=== PATIENT | female | born 1985 | race Caucasian/White ===

== ENCOUNTER 2023-09-18 15:22 | Outpatient (CLI) | payer OTHER, SELFPAY ==
--- NOTE | ~2023-09-18 | US_ITS ---
EXAMINATION: US pelvic complete w TV DATE: 09/18/2023 15:50 INDICATION: lower ab pain, dyspareunia TECHNIQUE: Multiple transabdominal and endovaginal sonographic images of the pelvis were obtained. COMPARISON: None. FINDINGS: Uterus: 10.2 x 3.4 x 3.2 cm. Endometrial complex measures 11 mm. Right Ovary: Not visualized. No adnexal mass Left Ovary: 3.2 x 2.6 x 2.9 cm. Vascular flow is present. 2.6 cm simple ovarian cyst. There is small volume free fluid in the pelvis. IMPRESSION: Right ovary not visualized. Otherwise, unremarkable pelvic sonogram findings. Reviewed, dictated and finalized at location K.
== END 2023-09-18 15:23 ==
PROVIDERS: PCP Family Medicine; Visit Provider Physician Assistant
DX: R10.30 Lower abdominal pain, unspecified (principal); N94.10 Unspecified dyspareunia
CPT/HCPCS: 76830; 76856

== ENCOUNTER 2023-10-16 15:34 | Outpatient (CLI) | payer OTHER, SELFPAY ==
--- NOTE | ~2023-10-16 | MM_ITS ---
EXAMINATION: MM screening billy BI w odilia HISTORY: Screening TECHNIQUE: Craniocaudal and mediolateral oblique 3-D tomosynthesis images were obtained and synthetic 2-D images were generated. CAD analysis was submitted and interpreted. COMPARISON: No prior mammogram is available for comparison at this institution. BREAST PARENCHYMAL COMPOSITION: Dense: The breasts are extremely dense, which lowers the sensitivity of mammography. FINDINGS: There is no mammographic evidence for malignancy in the left breast. There is a mass which is partially obscured in the upper outer quadrant of the right breast. IMPRESSION: 1. Partially obscured mass of the right breast in the upper outer quadrant posteriorly. 2. Additional mammographic views and possible breast ultrasound are recommended. BI-RADS Category 0: Incomplete: Needs additional imaging evaluation. Reviewed, dictated and finalized at location B. IMPRESSION: 1. Partially obscured mass of the right breast in the upper outer quadrant post eriorly. 2. Additional mammographic views and possible breast ultrasound are recommended . BI-RADS Category 0: Incomplete: Needs additional imaging evaluation.
== END 2023-10-16 15:35 | disposition home or self-care (01) ==
LOC: MICIMG 15:35
PROVIDERS: PCP Family Medicine; Visit Provider Physician Assistant
DX: Z12.31 Encounter for screening mammogram for malignant neoplasm of breast (principal); N63.11 Unspecified lump in the right breast, upper outer quadrant
CPT/HCPCS: 77063; 77067

== ENCOUNTER 2023-11-06 08:07 | Outpatient (CLI) | payer OTHER, SELFPAY ==
--- NOTE | ~2023-11-06 | MMUS_ITS ---
EXAMINATION: MM diagnostic billy RT w odilia, US breast RT limited HISTORY: Right breast masses TECHNIQUE: Additional 3-D tomosynthesis images of the right breast were performed and synthetic 2-D i mages were generated. CAD analysis was submitted and interpreted. High resolution limited right breas t ultrasound was performed. COMPARISON: 10/16/2023 BREAST PARENCHYMAL COMPOSITION:Dense: The breasts are extremely dense, which lowers the sensitivity o f mammography. FINDINGS: MAMMOGRAPHIC FINDINGS: Spot compression views confirm a persistent 15 mm ovoid mass at the upper, outer right breast. There are additional probable ovoid masses more posteriorly at the upper, outer right breast. ULTRASOUND: At the 10:00 position right breast, 5.5 cm from nipple, there is a 1.4 x 0.6 x 1.2 cm ovoid, hypoecho ic, solid mass, circumscribed, wider than tall, with posterior through transmission. There is a simil ar-appearing smaller mass nearby measuring 0.5 cm in maximum diameter. There is additional similar-ap pearing mass at the 11:00 position right breast, 4 cm from the nipple, measuring 1.4 x 0.9 x 1.5 cm. There is an additional 0.5 cm similar appearing mass at the right breast 12:00 position, 4 cm from th e nipple. IMPRESSION: Multiple probable benign breast masses at the upper, outer quadrant of the right breast, as detailed above. Six-month follow-up ultrasound recommended to reassess. BI-RADS category 3, probably benign findings. Reviewed, dictated and finalized at location . IMPRESSION: Multiple probable benign breast masses at the upper, outer quadrant of the rig ht breast, as detailed above. Six-month follow-up ultrasound recommended to [facility]. BI-RADS category 3, probably benign findings. IMPRESSION: Multiple probable benign breast masses at the upper, outer quadrant of the rig ht breast, as detailed above. Six-month follow-up ultrasound recommended to [facility]. BI-RADS category 3, probably benign findings.
== END 2023-11-06 08:08 | disposition home or self-care (01) ==
PROVIDERS: PCP Family Medicine; Visit Provider Student in an Organized Health Care Education/Training Program
DX: R92.8 Other abnormal and inconclusive findings on diagnostic imaging of breast (principal)
CPT/HCPCS: 76642; 77061; 77065; G0279

== ENCOUNTER 2024-05-20 09:17 | Outpatient (CLI) | payer OTHER, SELFPAY ==
--- NOTE | ~2024-05-20 | MMUS_ITS ---
EXAMINATION: MM diagnostic billy RT w odilia, US breast RT limited HISTORY: Follow-up right breast masses TECHNIQUE: Additional 3-D tomosynthesis images of the right breast were performed and synthetic 2-D i mages were generated. CAD analysis was submitted and interpreted. High resolution Limited right breas t ultrasound was performed. COMPARISON: Comparison to multiple prior studies sequentially, with oldest reviewed study dated 04/2023. BREAST PARENCHYMAL COMPOSITION: Dense: The breasts are extremely dense, which lowers the sensitivity of mammography. FINDINGS: MAMMOGRAPHIC FINDINGS: There are multiple obscured masses in the upper outer quadrant of the right breast, middle third. The re is a tissue marker from previous benign biopsy. ULTRASOUND: Limited right breast ultrasound: At 10:00, 5.5 cm from the nipple there is an oval circumscribed para llel oriented hypoechoic mass measuring 1.5 x 0.8 x 1.2 cm with internal vascularity without posterio r features or significant interval change. At 10:00, 5.5 cm from the nipple there is an oval parallel oriented hypoechoic 4 mm mass without internal vascularity or posterior features, unchanged. At 12:0 0, 4 cm from the nipple there is an oval hypoechoic 6 mm mass with parallel orientation, no posterior features or internal vascularity. At 11:00, 4 cm from the nipple there is an oval hypoechoic mass me asuring 1.5 x 1.4 x 0.9 cm with parallel orientation, mild internal vascularity and no significant po sterior features, without significant change from prior study. IMPRESSION: 1. Stable right breast masses, likely benign. 2. Recommend 6 month follow-up right breast ultrasound recommended. BI-RADS category 3, probably benign findings. Reviewed, dictated and finalized at location A. IMPRESSION: 1. Stable right breast masses, likely benign. 2. Recommend 6 month follow-up right breast ultrasound recommended. BI-RADS category 3, probably benign findings.
== END 2024-05-20 09:18 | disposition home or self-care (01) ==
LOC: MICIMG 09:18
PROVIDERS: PCP Family Medicine; Visit Provider Student in an Organized Health Care Education/Training Program
DX: R92.8 Other abnormal and inconclusive findings on diagnostic imaging of breast (principal); N63.11 Unspecified lump in the right breast, upper outer quadrant
CPT/HCPCS: 76642; 77061; 77065; G0279

== ENCOUNTER 2024-12-01 08:40 | Outpatient (CLI) | payer OTHER, SELFPAY ==
--- NOTE | ~2024-12-01 | MMUS_ITS ---
EXAMINATION: MM screening blily BI w odilia, US breast RT complete. INDICATION: 39-year old female; BI-RADS 3, short-term follow-up probably benign right breast findings. Annual screening bilateral breast mammogram. COMPARISON: 05/20/2024, 11/06/2023 and 10/16/2023 TECHNIQUE: Digital breast tomosynthesis CC and MLO views of BILATERAL breasts were obtained with computer-aided detection to assist in interpretation of the study. MAMMOGRAM FINDINGS: The breasts are heterogeneously dense, which may obscure small masses. Previously reported multiple partially obscured mass is in the upper outer quadrant of the right breast at middle depth reidentified are unchanged. There are at least 2 groups of calcifications seen in the left breast superior lateral at anterior third and middle third locations respectively. No other suspicious mass, calcification or architectural distortion to suggest malignancy in either breast. RIGHT BREAST ULTRASOUND FINDINGS: Targeted evaluation of the area of concern was completed. 1.4 cm parallel orientated circumscribed hypoechoic mass at 10:00 location 5.5 cm from the nipple in the RIGHT breast redemonstrated is Unchanged. 0.4 cm circumscribed hypoechoic mass at 10:00 location 5.5 cm from the nipple in the RIGHT breast redemonstrated is Unchanged. 0.4 cm parallel orientated circumscribed hypoechoic mass at 10:00 location 4 cm from the nipple in the RIGHT breast redemonstrated is Unchanged. 1.6 cm parallel orientated circumscribed hypoechoic mass at 11:00 location 4 cm from the nipple in the RIGHT breast redemonstrated is Unchanged. IMPRESSION: 1. Incompletely characterized groups of calcifications in the upper outer left breast. Further evaluation recommended. 2. Probable Benign RIGHT breast masses are unchanged. RECOMMENDATION: Left diagnostic mammography with appropriate magnification views 12 month follow-up diagnostic RIGHT mammogram and RIGHT breast ultrasound to complete 2 years follow-up. BI-RADS Category 0: Incomplete: Needs additional imaging evaluation. Reviewed, dictated and finalized at location B. IMPRESSION: 1. Incompletely characterized groups of calcifications in the upper outer left breast. Further evaluation recommended. 2. Probable Benign RIGHT breast masses are unchanged. RECOMMENDATION: Left diagnostic mammography with appropriate magnification views 12 month follow-up diagnostic RIGHT mammogram and RIGHT breast ultrasound to [facility] 2 years follow-up. BI-RADS Category 0: Incomplete: Needs additional imaging evaluation.
== END 2024-12-01 08:41 | disposition home or self-care (01) ==
LOC: MICIMG 08:41
PROVIDERS: PCP Family Medicine; Visit Provider Student in an Organized Health Care Education/Training Program
DX: Z12.31 Encounter for screening mammogram for malignant neoplasm of breast (principal); R92.8 Other abnormal and inconclusive findings on diagnostic imaging of breast
CPT/HCPCS: 76641; 77063; 77067

== ENCOUNTER 2025-01-12 13:08 | Outpatient (CLI) | payer OTHER, SELFPAY ==
--- NOTE | ~2025-01-12 | MM_ITS ---
EXAMINATION: MM diagnostic billy LT w odilia HISTORY: Additional imaging TECHNIQUE: Craniocaudal and mediolateral oblique 3-D tomosynthesis images were obtained and synthetic 2-D images were generated. CAD analysis was submitted and interpreted. COMPARISON: Studies dating back to October,. BREAST PARENCHYMAL COMPOSITION: Dense: The breasts are extremely dense FINDINGS: No suspicious masses are seen. The calcifications which are slightly more superior and lateral appear benign in morphology and are unchanged. They number only 4, and, as such, they do not even meet the criteria for biopsy. The calcifications which are more anterior and more medial are very loosely grouped, and they're considered benign. These are likewise unchanged. There are no suspicious calcifications. No unexplained architectural distortion is seen. There are no skin or nipple abnormalities identified. There is no adenopathy seen on the images submitted. IMPRESSION: Calcifications question are considered benign. No mammographic evidence to suggest malignancy is seen. The patient may return to screening mammography as per ACR guidelines, and she will be due for bilateral mammography in November next year. BI-RADS 2 - Benign. Reviewed, dictated and finalized at location B. WORKER IMPRESSION: Calcifications question are considered benign. No mammographic evidence to sugg est malignancy is seen. The patient may return to screening mammography as per ACR guidelines, and she will be due for bilateral mammography in November year. BI-RADS 2 - Benign.
--- OUTSIDE RECORDS SUMMARY | 2025-01-12 14:16 | XMS_ITS | Clinical Summary ---
Author Organization [facility] Address [address] [place] [address] Care Team Providers Care Survey Interviewer Name Role Phone Gilda Winchester MD Primary Care Provider [phone] Allergies Active Allergy Reactions Criticality Noted Date Comments Penicillins Unknown 07/25/2017 Medications No known medications Active Problems Problem Noted Date Diagnosed Date Tubular adenoma of female breast, right 07/26/19 18 Social History Tobacco Use Types Packs/Day Years Used Date Smoking Tobacco: Never Smokeless Tobacco: Never Alcohol Use Standard Drinks/Week Comments Yes 0 (1 standard drink = 0.6 oz pur e alcohol) occasionally Comments No Sex and Gender Information Value Date Recorded Sex Assigned at Not on file Legal Sex Female 1:51 PM CDT Gender Identity Not on file Sexual Orientation Not on file Last Filed Vital Signs Vital Sign Reading Time Taken Comments Blood Pressure 103/73 04/10/2018 3:11 PM 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 Pulse 60 04/10/2018 3:11 PM 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 Temperature 36.8 C (98.3 F) 04/10/2018 3:11 PM 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 Respiratory Rate - - Oxygen Saturation 98% 04/10/2018 3:11 PM 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 Inhaled Oxygen Concentration - - Weight 51.4 kg (113 lb 4.8 oz) 04/10/2018 3:11 P M 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 Height 160 cm (5' 3) 04/10/2018 3:11 PM 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 Body Mass Index 20.07 04/10/2018 3:11 PM 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 Plan of Treatment Health Maintenance Due Date Last Done Comments DTAP/TDAP/TD VACCINES (1 - Tdap) 05/15/2002 HEPATITIS B VACCINES (1 of 3 - 19+ 3-dose series) 04/2002 HPV/Cotest (21-29) 05/15/2004 HPV VACCINES (1 - 3-dose SCDM series) 05/15/2010 CERVICAL CANCER SCREENING 05/15/2013 HPV/Cotest (30-65) 05/15/2013 PAP SMEAR 05/15/2013 BREAST CANCER SCREENING 2023 INFLUENZA VACCINE (#1) 2024 Insurance Care Teams Survey Interviewer Relationship Specialty Start Date End Date Gilda Winchester MD PCP - General Family Practice 07/25/17
== END 2025-01-12 13:09 | disposition home or self-care (01) ==
LOC: ANHFOHIMG 13:10
PROVIDERS: PCP Family Medicine; Visit Provider Student in an Organized Health Care Education/Training Program
DX: R92.8 Other abnormal and inconclusive findings on diagnostic imaging of breast (principal)
CPT/HCPCS: 77061; 77065; G0279